=== PATIENT | female | born 1965 | race Two or more races ===

== ENCOUNTER 2021-07-10 18:40 | Inpatient (IN) | payer OTHER ==
[~2021-07-10] VITALS: Ht 162.6 cm; Wt 89.0 kg
[2021-07-10] MEDS ORDERED: SODIUM CHLORIDE 0.9% 500 ML IV ONE (19:00)
[2021-07-10] MEDS ORDERED: HYDROmorphone HCL 2 MG/ML VL IV ONE (19:15)
[2021-07-10] MEDS ORDERED: ONDANSETRON HCL 4 MG/2 ML VIAL IV ONE (19:15)
[2021-07-10 19:35] LABS: Basophils # (auto) 0 10 ^3/uL (0-0.2); Basophils % (auto) 0.3 % (0.0-2.0); Eosinophils # (auto) 0.1 10 ^3/uL (0-0.8); Eosinophils % (auto) 1.3 % (0.0-7.0); Hematocrit 37.4 % (36.0-46.0); Hemoglobin 12.4 g/dL (12.2-16.2); Lymphocytes # (auto) 2.9 10 ^3/uL (0.4-5.4); Lymphocytes % (auto) 26.7 % (10.0-50.0); Mean Corpuscular Hemoglobin 28.3 pg (28.0-32.0); Mean Corpuscular Hgb Conc. 33.2 g/dL (32.0-36.0); Mean Corpuscular Volume 85.3 fL (80.0-100.0); Monocytes # (auto) 0.8 10 ^3/uL (0-1.3); Monocytes % (auto) 7.4 % (0.0-12.0); Neutrophils # (auto) 7.1 10 ^3/uL (1.6-8.6); Neutrophils % (auto) 64.3 % (37.0-80.0); Red Blood Cells 4.38 10^6/uL (4.0-5.20); Red Cell Distribution Width 13.2 % (11.8-14.3)
[2021-07-10 19:50] LABS: INR 1.07 (0.9-1.15); Partial Thromboplastin Time 25.6 sec (23.6-33.0)
[2021-07-10 19:51] LABS: Albumin 3.8 g/dL (3.4-5.0); Calcium 8.7 mg/dL (8.5-10.1); Potassium 4.3 mmol/L (3.5-5.1)
[2021-07-10 19:54] LABS: BUN/Creatinine Ratio 18.9; Bilirubin, Total 0.3 mg/dL (0.2-1.0); Total Protein 7.6 g/dL (6.4-8.2)
[2021-07-10] MEDS ORDERED: DOCUSATE SOD 100 MG CAP PO PRN (22:15)
[2021-07-10] MEDS ORDERED: NITROGLYCERIN 0.4 MG SL TAB SL PRN (22:15)
[2021-07-10] MEDS ORDERED: ACETAMINOPHEN 325 MG TAB PO PRN (22:15)
[2021-07-10] MEDS ORDERED: MORPHINE SULFATE INJECTION 2 MG/ML SYRG IV PRN (22:15)
[2021-07-10] MEDS ORDERED: hydrALAZINE HCL 20 MG/ML VL IV PRN (22:30)
[2021-07-11] VITALS (16 sets, daily range): BP systolic 97–121; BP diastolic 56–73
[2021-07-11] MEDS ORDERED: ONDANSETRON HCL 4 MG/2 ML VIAL IV PRN
[2021-07-11] MEDS: MORPHINE SULFATE INJECTION 2 MG/ML SYRG IV PRN ×2 (00:50→06:10)
[2021-07-11] MEDS: HYDROcodone-ACET 5/325MG TAB PO PRN (02:27)
[2021-07-11] MEDS ORDERED: PANT40TA2 PO (05:23)
[2021-07-11] MEDS ORDERED: LISI20TA28 PO (05:23)
[2021-07-11] MEDS ORDERED: AMLO-483 PO (05:23)
[2021-07-11] MEDS: SOD CHL 0.45% 1,000 ML IV SCH ×3 (07:00→22:54)
[2021-07-11 07:49] LABS: Basophils # (auto) 0 10 ^3/uL (0-0.2); Basophils % (auto) 0.4 % (0.0-2.0); Eosinophils # (auto) 0.1 10 ^3/uL (0-0.8); Eosinophils % (auto) 0.9 % (0.0-7.0); Hematocrit 32.8 % (36.0-46.0); Hemoglobin 11.1 g/dL (12.2-16.2); Lymphocytes # (auto) 2.4 10 ^3/uL (0.4-5.4); Lymphocytes % (auto) 31.1 % (10.0-50.0); Mean Corpuscular Hemoglobin 28.7 pg (28.0-32.0); Mean Corpuscular Hgb Conc. 33.7 g/dL (32.0-36.0); Monocytes # (auto) 0.6 10 ^3/uL (0-1.3); Monocytes % (auto) 8.3 % (0.0-12.0); Neutrophils # (auto) 4.6 10 ^3/uL (1.6-8.6); Neutrophils % (auto) 59.3 % (37.0-80.0); Nucleated Red Blood Cells % 0.1 %; Red Blood Cells 3.86 10^6/uL (4.0-5.20); Red Cell Distribution Width 13.4 % (11.8-14.3); White Blood Cell 7.7 10^3/uL (4.4-10.8)
[2021-07-11 08:07] LABS: Albumin 3.2 g/dL (3.4-5.0); Calcium 8.6 mg/dL (8.5-10.1); Potassium 4.2 mmol/L (3.5-5.1)
[2021-07-11 08:10] LABS: BUN/Creatinine Ratio 22.8; Bilirubin, Total 0.4 mg/dL (0.2-1.0); Total Protein 6.4 g/dL (6.4-8.2)
[2021-07-11] MEDS: FAMOTIDINE (10MG/ML) 2ML VL IV SCH (08:46)
[2021-07-11] MEDS: ENOXAPARIN SOD 40 MG/0.4 ML SYRINGE SC SCH (08:47)
[2021-07-11] MEDS ORDERED: ceFAZolin 1GM/50ML 100 ML IV ONE (09:07)
[2021-07-11] MEDS ORDERED: BUPIVACAINE 0.25% INJ 50ML VIAL ONE (09:10)
[2021-07-11] MEDS ORDERED: TETRACAINE 1% INJ 2 ML VIAL IJ ONE (09:13)
[2021-07-11] MEDS ORDERED: OXYCODONE W/ ACETAMINOPHEN 5/325MG TABLET PO PRN (11:00)
[2021-07-11] MEDS: LACTATED RINGER'S 1,000 ML IV SCH (11:00)
[2021-07-11] MEDS ORDERED: DexAMETHasone SOD PHOS 10MG/1ML VIAL INJ IV PRN (11:15)
[2021-07-11] MEDS ORDERED: HYDROmorphone HCL 2 MG/ML VL IV PRN (11:15)
[2021-07-11] MEDS ORDERED: diphenhdrAMINE HCL 50 MG/1 ML VL IV PRN (11:15)
[2021-07-11] MEDS ORDERED: NALBUPHINE HCL 10 MG/1ml INJECTION SUBCUT ONE (11:15)
[2021-07-11] MEDS ORDERED: NALOXONE HCL 0.4 MG/ML VIAL IV PRN (11:15)
[2021-07-11] MEDS ORDERED: MEPERIDINE HCL (25 MG/ML) 1ML VIAL ONE (11:23)
[2021-07-11] MEDS: ceFAZolin 1GM/50ML 50 ML IV SCH ×3 (12:57→22:53)
[2021-07-11] MEDS: SODIUM CHLOR 0.9% PF (SALINE LOCK) 10ML VIAL/SYR IV SCH ×2 (12:57→20:41)
[2021-07-11] MEDS: KETOROLAC TROMETH 30 MG/ML 1ML VIAL IV PRN (13:51)
[2021-07-11] MEDS: HYDROmorphone HCL 2 MG/ML VL IV PRN ×2 (15:08→21:23)
[2021-07-11] MEDS: ONDANSETRON HCL 4 MG/2 ML VIAL IV PRN (18:26)
[2021-07-11] MEDS: DOCUSATE SOD 100 MG CAP PO SCH (20:41)
[2021-07-12] VITALS (19 sets, daily range): BP systolic 98–141; BP diastolic 60–110
[2021-07-12] MEDS: HYDROmorphone HCL 2 MG/ML VL IV PRN ×9 (00:32→22:56)
[2021-07-12] MEDS: SODIUM CHLOR 0.9% PF (SALINE LOCK) 10ML VIAL/SYR IV SCH ×3 (06:26→21:39)
[2021-07-12] MEDS: LACTATED RINGER'S 1,000 ML IV SCH ×2 (07:00→15:38)
[2021-07-12] MEDS: FAMOTIDINE (10MG/ML) 2ML VL IV SCH (08:19)
[2021-07-12] MEDS: ENOXAPARIN SOD 40 MG/0.4 ML SYRINGE SC SCH (08:19)
[2021-07-12] MEDS: DOCUSATE SOD 100 MG CAP PO SCH ×2 (08:19→21:59)
[2021-07-12] MEDS: KETOROLAC TROMETH 30 MG/ML 1ML VIAL IV PRN (08:20)
[2021-07-12] MEDS: ONDANSETRON HCL 4 MG/2 ML VIAL IV PRN ×3 (08:39→20:55)
[2021-07-12 10:43] LABS: Basophils # (auto) 0 10 ^3/uL (0-0.2); Basophils % (auto) 0.2 % (0.0-2.0); Eosinophils # (auto) 0.1 10 ^3/uL (0-0.8); Eosinophils % (auto) 0.9 % (0.0-7.0); Hematocrit 28.5 % (36.0-46.0); Hemoglobin 9.6 g/dL (12.2-16.2); Lymphocytes # (auto) 1.5 10 ^3/uL (0.4-5.4); Lymphocytes % (auto) 18.5 % (10.0-50.0); Mean Corpuscular Hemoglobin 28.8 pg (28.0-32.0); Mean Corpuscular Hgb Conc. 33.7 g/dL (32.0-36.0); Mean Corpuscular Volume 85.6 fL (80.0-100.0); Monocytes # (auto) 0.8 10 ^3/uL (0-1.3); Monocytes % (auto) 10.2 % (0.0-12.0); Neutrophils # (auto) 5.6 10 ^3/uL (1.6-8.6); Neutrophils % (auto) 70.2 % (37.0-80.0); Red Blood Cells 3.33 10^6/uL (4.0-5.20); Red Cell Distribution Width 13.2 % (11.8-14.3); White Blood Cell 7.9 10^3/uL (4.4-10.8)
[2021-07-12 11:16] LABS: Albumin 2.8 g/dL (3.4-5.0); Calcium 8.1 mg/dL (8.5-10.1); Potassium 4.3 mmol/L (3.5-5.1)
[2021-07-12 11:21] LABS: BUN/Creatinine Ratio 19.1; Bilirubin, Total 0.5 mg/dL (0.2-1.0); Total Protein 5.8 g/dL (6.4-8.2)
[2021-07-12] MEDS: SOD CHL 0.45% 1,000 ML IV SCH (14:34)
[2021-07-12] MEDS ORDERED: [UNRECOGNIZED DRUG - CODE] PO (20:55)
[2021-07-13] MEDS: HYDROmorphone HCL 2 MG/ML VL IV PRN ×5 (00:55→09:51)
[2021-07-13] MEDS: ONDANSETRON HCL 4 MG/2 ML VIAL IV PRN ×2 (00:55→09:50)
[2021-07-13] MEDS: LACTATED RINGER'S 1,000 ML IV SCH ×2 (03:00→12:59)
[2021-07-13] MEDS: SOD CHL 0.45% 1,000 ML IV SCH (03:35)
[2021-07-13 05:00] VITALS: BP 107/66
[2021-07-13] MEDS: SODIUM CHLOR 0.9% PF (SALINE LOCK) 10ML VIAL/SYR IV SCH (06:16)
[2021-07-13 09:00] VITALS: BP 107/68
[2021-07-13] MEDS: DOCUSATE SOD 100 MG CAP PO SCH (09:49)
[2021-07-13] MEDS: FAMOTIDINE (10MG/ML) 2ML VL IV SCH (09:49)
[2021-07-13] MEDS: ENOXAPARIN SOD 40 MG/0.4 ML SYRINGE SC SCH (09:50)
[2021-07-13] MEDS ORDERED: RIVA10TA PO (12:06)
[2021-07-13] MEDS ORDERED: CEPH500T PO (12:06)
[2021-07-13] MEDS ORDERED: ONDA-144 PO (12:06)
[2021-07-13 12:52] VITALS: BP 107/68
[2021-07-13] MEDS: HYDROcodone-ACET 5/325MG TAB PO PRN (12:58)
[2021-07-13 13:00] VITALS: BP 137/75
== END 2021-07-13 14:13 | disposition home health service (06) | DRG 494 ==
LOC: EDBD 18:40 → ER 18:42 → OVERFLOW 22:12 → WEST WING 07-11 03:30 → TELE-WESTW 07-11 12:15
PROVIDERS: ADMIT Nurse Practitioner Family; ATTEND Internal Medicine
PROC: 0QSH04Z Reposition Left Tibia with Internal Fixation Device, Open Approach (ICD-10-PCS; 2021-07-11)
PROC: 0QSK04Z Reposition Left Fibula with Internal Fixation Device, Open Approach (ICD-10-PCS; principal; 2021-07-11 09:18)
DX: S82.202A Unspecified fracture of shaft of left tibia, initial encounter for closed fracture (principal); I10 Essential (primary) hypertension; J45.909 Unspecified asthma, uncomplicated; S82.402A Unspecified fracture of shaft of left fibula, initial encounter for closed fracture; W18.39XA Other fall on same level, initial encounter; Z20.822 Contact with and (suspected) exposure to COVID-19; Z80.9 Family history of malignant neoplasm, unspecified; Z88.2 Allergy status to sulfonamides; Y93.89 Activity, other specified; Y92.098 Other place in other non-institutional residence as the place of occurrence of the external cause; Y99.8 Other external cause status
CPT/HCPCS: 36415; 71045; 73590; 73610; 76000; 80053; 85025; 85610; 85730; 86850; 86900; 86901; 87426; 93005; 96361; 96374; 96375; 97163; G0378; J0690; J1885; J2405; J3490